=== PATIENT | male | born 1970 | race Caucasian/White ===

== ENCOUNTER 2023-12-29 23:14 | Emergency (ER) | payer BC ==
[~2023-12-29] VITALS: Ht 172.7 cm; Wt 115.7 kg
[2023-12-30] MEDS ORDERED: methylPREDNISolone sod succ 125 MG VIAL IM ONE (01:30)
[2023-12-30] MEDS ORDERED: PREDNISONE20 M1 PO (01:32)
== END 2023-12-30 01:45 | disposition home or self-care (01) ==
LOC: ED 23:14
DX: G47.33 Obstructive sleep apnea (adult) (pediatric) (principal); R06.02 Shortness of breath; I50.9 Heart failure, unspecified

== ENCOUNTER → 2024-01-06 | Outpatient (CLI) | payer BC ==
[~2024-01-06] MED LIST: IOHEXOL 300 MG/ML 100 ML VIAL IV ONE; IOHEXOL 300 MG/ML 100 ML VIAL ONE; PREDNISONE20 M1 PO
[2024-01-06 11:35] LABS: BUN 21 mg/dl (9-23)
== END | disposition home or self-care (01) ==
LOC: CT 12-29 16:00 → EDUNIT# 12-29 16:00 → CT 10:53
PROVIDERS: ATTEND Internal Medicine Critical Care Medicine
DX: Z01.818 Encounter for other preprocedural examination (principal); J84.10 Pulmonary fibrosis, unspecified; J45.30 Mild persistent asthma, uncomplicated; J84.113 Idiopathic non-specific interstitial pneumonitis; R59.0 Localized enlarged lymph nodes; Z86.16 Personal history of COVID-19; Z68.39 Body mass index [BMI] 39.0-39.9, adult